=== PATIENT | female | born 1975 | race Caucasian/White ===

== ENCOUNTER 2025-01-17 10:10 | Outpatient (CLI) | payer OTHER, SELFPAY | END 2025-01-17 10:11 | disposition home or self-care (01) | PROVIDERS: Visit Provider Registered Nurse | DX: E66.9 Obesity, unspecified (principal); R03.0 Elevated blood-pressure reading, without diagnosis of hypertension; R53.83 Other fatigue; Z13.1 Encounter for screening for diabetes mellitus | CPT/HCPCS: 82306; 84443 ==